=== PATIENT | female | born 1980 | race Caucasian/White ===

== ENCOUNTER 2017-10-13 20:54 | Emergency (ER) | payer OTHER ==
[~2017-10-13 20:54] MED LIST: ALBUTEROL SULFAT3 M1 INH; ALBUTEROL0.09 MG/A1 INH; ALBUTEROL1.25 MG/3 INH; ALPRAZOLAM1 MG PO; ANTIVERT 25 MG25 MG PO; BACLOFEN10 M1 PO; CARISOPRODOL350 MG PO; COUMADIN 7.5 M7.5 MG PO; DILAUDID2 MG PO; FIORICET 325 MG1 TAB PO; GABAPENTIN300 MG PO; K-DUR 20MEQ TA20 MEQ PO; KADIAN30 MG PO; LASIX20 M1 PO; LASIX40 MG PO; LEVAQUIN500 MG PO; LEVOTHYROXIN0.075 M1 PO; LEVOTHYROXINE0.05 M1 PO; LEVOTHYROXINE0.1 MG PO; LIORESAL 10MG T10 MG PO; MACROBID100 MG PO; MEDROL DOSEPAK1 PAC PO; MIRENA52 MG; NICODERM C21 MG/24 H TOP; Nebulizer machine; OXYCODONE HCL15 MG PO; OXYCODONE HCL5 M1 PO; OXYCODONE HYDRO30 MG PO; PANTOPRAZOLE SO40 MG PO; PREDNISONE 20MG20 MG PO; PREDNISONE10 MG PO; PROAIR HFA0.09 MG/Ac INH; PROVENTIL0.09 MG/A1 INH; REGLAN10 MG PO; RELPAX 40MG40 MG PO; SAVELLA 50MG50 MG PO; TESSALON PERLE100 MG PO; TOPIRAMATE100 MG PO; ULTRAM(MONOGRAP50 MG PO; VENTOLIN HFA18 GM INH; VIBRAMYCIN 100100 MG PO; WARFARIN SODIUM5 MG PO; XARELTO20 MG PO; ZITHROMAX250 MG PO
[2017-10-13] MEDS ORDERED: VALTREX1000 MG PO (22:05)
--- NOTE | 2017-10-13 22:05 | ED SKIN/ALLERGY COMPLAINT ---
History of Present Illness General Chief Complaint: General Adult Stated Complaint: LUMP UNDER NECK/BLISTER ON NOSE SPREADING Source: patient Exam Limitations: no limitations Vital Signs & Intake/Output Vital Signs & Intake/Output Vital Signs Date Time Temp Pulse Resp B/P B/P Pulse O2 O2 Flow FiO2 Mean Ox Delivery Rate 10/13 2244 99.1 76 18 140/66 97 Room Air 10/13 2109 98.2 99 17 175/102 97 Room Air Allergies Coded Allergies: amoxicillin (Intermediate, RASH 01/11/17) Reconcile Medications Albuterol Sulfate (Ventolin Hfa) 18 GM HFA.AER.AD 2 PUF INH Q4-6 PRN PRN WHEEZING/COUGH Albuterol Sulfate (Albuterol Sulfate Hfa) 0.09 MG/Actuation ZAIDA 2-4 PUFF INH Q4-6 PRN PRN SHORTNESS OF BREATH 90 MCG PER PUFF Albuterol Sulfate (Albuterol Sulfate Nebulizer Soln) 1.25 MG/3 ML KEN 1 UNIT INH Q4P PRN shortness of breath Azithromycin (Zithromax) 250 MG TAB 1 TAB PO DAILY pneumonia Baclofen 10 MG TABLET 1 TAB PO TIDPRN PRN muscle spasm/strain Benzonatate (Tessalon Perle) 100 MG SGL 1 CAP PO TID PRN COUGH Carisoprodol 350 MG TABLET 1 TAB PO BID PAIN (Reported) Eletriptan Hydrobromide (Relpax 40MG) 40 MG TABLET 1 TAB PO AD PRN MIGRAINES (Reported) Furosemide (Lasix) 20 MG TABLET 1 TAB PO DAILY EDEMA/SWELLING Gabapentin 300 MG CAPSULE 600 MG PO TID NEUROPATHY (Reported) Levonorgestrel (Mirena) 52 MG ICR CONTROL (Reported) Levothyroxine Sodium 0.1 MG TAB 0.1 MG PO DAILY AC THYROID (Reported) Morphine Sulfate (Maricarmen) 30 MG CER 30 MG PO BID PAIN (Reported) [Nebulizer machine] bronchospasm 1 neb Q4H prn bronchospasm Nicotine (Nicoderm Cq) 21 MG/24 HR TDM 1 PAT TOP DAILY tobacco abuse OXYCODONE HCL (Oxycodone HCl) 15 MG TAB 1 TAB PO 4 TIMES/DAY PAIN (Reported) Oxycodone HCl 5 MG TABLET 1-2 TAB PO Q6P PRN pain Prednisone 20 MG TAB 1 TAB PO BID BRONCHOSPASM Rivaroxaban (Xarelto) 20 MG TABLET 1 TAB PO DAILY PE (Reported) with food Topiramate 100 MG TABLET 1 TAB PO BID WHITMORE (Reported) Valacyclovir HCl (Valtrex) 1,000 MG TABLET 1 TAB PO TID Shingles Triage Note: PT TO ED WITH C/O INFECTION TO TIP OF NOSE NOW SPREADING TO LEFT SIDE OF NOSE DESPITE USING TOPICAL ANTIBIOTICS GIVEN BY PCP ON FRIDAY. ALSO REPORTS HARD SWELLING TO RIGHT NECK LYMPH NODE SINCE FRIDAY. Triage Nurses Notes Reviewed? yes : No Patient currently breastfeeds: No HPI: 37-year-old female presents emergency department complaining of a burning rash on her nose. States it started about 3 days ago in a small area and is now spreading to other parts of her nose. She went to her primary doctor who gave her mupirocin cream but it is not helping. States she feels a burning sensation on the side of her nose now. Patient also reports a lump in her neck which she noticed a few days ago as well. She denies any sore throat or ear pain. No difficulty swallowing or trouble breathing. No fever chills. No nausea or vomiting. Denies any vision changes. She does not wear contacts. (Nehemias Marie PA-C) Past History Travel History Traveled to [place] past 21 day No Medical History Any Pertinent Medical History? none Neurological: migraine EENT: NONE Cardiovascular: NONE Respiratory: pulmonary embolism, pneumonia Gastrointestinal: GI bleed secondary to hemorrhagic gastritis, gastric ulcer. 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 No (Nehemias Marie PA-C) Review of Systems Review of Systems Constitutional: Reports: no symptoms. EENTM: Reports: see HPI. Respiratory: Reports: no symptoms. Cardiovascular: Reports: no symptoms. GI: Reports: no symptoms. Genitourinary: Reports: no symptoms. Musculoskeletal: Reports: no symptoms. Skin: Reports: see HPI. Neurological/Psychological: Reports: no symptoms. Hematologic/Endocrine: Reports: no symptoms. Immunologic/Allergic: Reports: no symptoms. All Other Systems: Reviewed and Negative (Nehemias Marie PA-C) Physical Exam Physical Exam General Appearance: well developed/nourished, no apparent distress, alert, awake Head: atraumatic, normal appearance Eyes: Bilateral: normal appearance, PERRL, EOMI. Ears, Nose, Throat: normal pharynx, Vesicular rash on tip of nose with surrounding erythema Neck: Right sided tender mass under jaw, moveable. Respiratory: normal breath sounds, chest non-tender, no respiratory distress Cardiovascular: regular rate/rhythm Extremities: normal inspection, normal range of motion Skin: intact, rash (Nehemias Marie PA-C) Progress Differential Diagnosis: abscess/cellulitis, allergic reaction, angioedema, contact dermatitis, drug reaction, shingles, urticaria Plan of Care: Current Medications Sig/Rancho Start time Last Medication Dose Stop Time Status Admin Valacyclovir HCl 1,000 MG TID 10/13 2201 UNVr (Valtrex) Comments: 37-year-old female presenting with a vesicular rash on her nose. Consistent with shingles, Brown sign. She has no pain in her eye or vision changes. Rash is limited to tip of her nose. Will start on oral Valtrex and have close ophthalmology follow-up tomorrow. She can take Tylenol or Motrin for pain. The lump in her neck feels like a lymph node. He can also be a salivary stone blockage. Will have her use lemon candies to suck on. It could be related to the rash. Encourage follow-up with her primary doctor for reevaluation if lump persists after rash disappears. Patient is agree with plan of care. Return to emergency department immediately with any worsening symptoms. (Nehemias Marie PA-C) Departure Departure Disposition: HOME OR SELF CARE Condition: Stable Clinical Impression Primary Impression: Shingles Qualifiers: Herpes zoster complications: with other complications Qualified Code: B02.8 - Zoster with other complications Secondary Impressions: Lump in neck, Rash and nonspecific skin eruption Referrals: Kathy Galvin APRN (PCP/Family) Thai MAURICE,Chris Todd. Additional Instructions: Avoid touching area including her eyes. Take Valtrex as prescribed. You should follow-up with an eye doctor within 24 hours. Return to emergency department if you develop any vision changes or new or worsening symptoms. Departure Forms: Customer Survey General Discharge Information Prescriptions: Current Visit Scripts Valacyclovir HCl (Valtrex) 1 TAB PO TID #21 TAB (Nehemias Marie PA-C) PA/ASSOCIATE DIRECTOR REGULATORY AFFAIRS Co-Sign Statement Statement: ED Attending supervision documentation- [] I saw and evaluated the patient. I have also reviewed all the pertinent lab results and diagnostic results. I agree with the findings and the plan of care as documented in the PA's/ASSOCIATE DIRECTOR REGULATORY AFFAIRS's documentation. []x I have reviewed the ED Record and agree with the PA's/ASSOCIATE DIRECTOR REGULATORY AFFAIRS's documentation. [] Additions or exceptions (if any) to the PAs/ASSOCIATE DIRECTOR REGULATORY AFFAIRS's note and plan are summarized below: [] (Kayla MAURICE,Darien Villagomez)
[2017-10-13 22:44] VITALS: BP 140/66
== END 2017-10-13 22:51 ==
LOC: ERH 20:54
DX: B02.9 Zoster without complications (principal); R22.1 Localized swelling, mass and lump, neck; R21 Rash and other nonspecific skin eruption